=== PATIENT | male | born 1940 | race Caucasian/White ===

== ENCOUNTER → 2017-09-24 | Outpatient (CLI) | payer MEDICARE ==
--- NOTE | 2017-09-24 09:10 | US ---
EXAMINATION TYPE: US carotid duplex BILAT DATE OF EXAM: 09/24/2017 COMPARISON: US 2016 CLINICAL HISTORY: CVA I63.9, PAD. History of CVA EXAM MEASUREMENTS: RIGHT: Peak Systolic Velocity (PSV) cm/sec ----- Right CCA: 64.7 ----- Right ICA: 67.0 ----- Right ECA: 100.0 ICA/CCA ratio: 1.0 RIGHT: End Diastole cm/sec ----- Right CCA: 10.4 ----- Right ICA: 17.7 ----- Right ECA: 5.2 LEFT: Peak Systolic Velocity (PSV) cm/sec ----- Left CCA: 91.9 ----- Left ICA: 74.5 ----- Left ECA: 76.6 ICA/CCA ratio: 0.8 LEFT: End Diastole cm/sec ----- Left CCA: 12.3 ----- Left ICA: 18.8 ----- Left ECA: 4.8 VERTEBRALS (direction of flow): Right Vertebral: Antegrade Left Vertebral: Antegrade Rhythm: Normal Bilateral intimal thickening, minimal plaque bilateral bulb, no elevated velocities, no significant s tenosis. IMPRESSION: Mild degree of grayscale atheromatous plaquing with no sonographically evident hemodynam ically significant stenosis within either visualized carotid arterial system.
== END | disposition home or self-care (01) ==
LOC: RADUSMAIN 08:13
PROVIDERS: ATTEND Family Medicine
DX: I67.2 Cerebral atherosclerosis (principal); I73.9 Peripheral vascular disease, unspecified; I63.9 Cerebral infarction, unspecified
CPT/HCPCS: 93880

== ENCOUNTER → 2017-12-26 | Outpatient (CLI) | payer MEDICARE ==
--- NOTE | 2017-12-26 10:37 | ECHOF ---
Referral Reason:Aortic stenosis MEASUREMENTS -------- HEIGHT: 172.7 cm WEIGHT: 108.9 kg BP: IVSd: 1.2 cm (0.6 - 1.1) LVIDd: 4.5 cm (3.9 - 5.3) LVPWd: 1.2 cm (0.6 - 1.1) IVSs: 1.7 cm LVIDs: 3.5 cm LVPWs: 1.2 cm LA Diam: 4.4 cm (2.7 - 3.8) LAESV Index (A-L): 29.51 ml/m Ao Diam: 3.4 cm (2.0 - 3.7) AV Cusp: 1.1 cm (1.5 - 2.6) LA Diam: 3.8 cm (2.7 - 3.8) MV EXCURSION: 16.659 mm (> 18.000) MV EF SLOPE: 52 mm/s (70 - 150) EPSS: 1.1 cm MV E Kelechi: 0.68 m/s MV DecT: 263 ms MV A Kelechi: 1.00 m/s MV E/A Ratio: 0.68 AV maxP.16 mmHg AV meanP.17 mmHg RAP: 5.00 mmHg RVSP: 16.78 mmHg FINDINGS -------- Sinus rhythm. This was a technically adequate study. The left ventricular size is normal. There is mild concentric left ventricular hypertrophy. Overa ll left ventricular systolic function is low-normal with, an EF between 50 - 55 %. The right ventricle is normal in size. The left atrium is moderately dilated. LA is midly dilated 29-33ml/m2. The right atrial size is normal. There is mild aortic valve sclerosis. There is [id number] aortic regurgitation. There is mo derate aortic stenosis present. Peak/mean gradient across the Aortic Valve is 40.16mmHg / 20.17mmHg . AOV is possible Bicuspid. Mild mitral annular calcification present. Mild mitral regurgitation is present. Mild tricuspid regurgitation present. There is no evidence of pulmonary hypertension. The right v entricular systolic pressure, as measured by Doppler, is 16.78mmHg. There is no pulmonic regurgitation present. The aortic root size is normal. There is no pericardial effusion. CONCLUSIONS -------- 1. The left ventricular size is normal. 2. There is mild concentric left ventricular hypertrophy. 3. Overall left ventricular systolic function is low-normal with, an EF between 50 - 55 %. 4. The right ventricle is normal in size. 5. The left atrium is moderately dilated. 6. LA is midly dilated 29-33ml/m2. 7. The right atrial size is normal. 8. There is mild aortic valve sclerosis. 9. There is moderate aortic stenosis present. 10. Peak/mean gradient across the Aortic Valve is 40.16mmHg / 20.17mmHg. 11. AOV is possible Bicuspid. 12. Mild mitral annular calcification present. 13. Mild mitral regurgitation is present. 14. Mild tricuspid regurgitation present. 15. There is no evidence of pulmonary hypertension. 16. The right ventricular systolic pressure, as measured by Doppler, is 16.78mmHg. 17. There is no pulmonic regurgitation present. 18. The aortic root size is normal. 19. There is no pericardial effusion. DIE CAST DIE MAKER: Ryanne Kim RDCS
== END | disposition home or self-care (01) ==
LOC: RADECHMAIN 08:11
PROVIDERS: ATTEND Family Medicine
DX: I08.1 Rheumatic disorders of both mitral and tricuspid valves (principal)
CPT/HCPCS: 93306

== ENCOUNTER → 2020-08-11 | Outpatient (CLI) | payer MEDICARE ==
--- NOTE | 2020-08-11 12:09 | ECHOF ---
Referral Reason:CVA Aortic Stenosis MEASUREMENTS -------- HEIGHT: 175.3 cm WEIGHT: 111.6 kg BP: RVIDd: 3.0 cm (< 3.3) IVSd: 1.3 cm (0.6 - 1.1) LVIDd: 4.7 cm (3.9 - 5.3) LVPWd: 1.4 cm (0.6 - 1.1) IVSs: 1.9 cm LVIDs: 2.5 cm LVPWs: 1.8 cm LA Diam: 4.4 cm (2.7 - 3.8) LAESV Index (A-L): 38.91 ml/m Ao Diam: 3.1 cm (2.0 - 3.7) AV Cusp: 1.2 cm (1.5 - 2.6) LA Diam: 4.4 cm (2.7 - 3.8) MV EXCURSION: 14.751 mm (> 18.000) MV EF SLOPE: 27 mm/s (70 - 150) EPSS: 1.4 cm MV E Kelechi: 0.58 m/s MV DecT: 266 ms MV A Kelechi: 1.12 m/s MV E/A Ratio: 0.51 AV maxP.13 mmHg AV meanP.34 mmHg RAP: 5.00 mmHg RVSP: 31.50 mmHg FINDINGS -------- Sinus rhythm. This was a technically adequate study. The left ventricular size is normal. There is mild concentric left ventricular hypertrophy. Overa ll left ventricular systolic function is normal with, an EF between 55 - 60 %. The diastolic fillin g pattern is normal for the age of the patient 11.08. The right ventricle is normal in size. LA is moderately dilated 34-39 ml/m2 The right atrial size is normal. There is severe aortic valve sclerosis. There is moderate aortic stenosis present. Peak/mean grad ient across the Aortic Valve is 55.13mmHg / 33.34mmHg. Mild mitral annular calcification present. Mild mitral regurgitation is present. The tricuspid valve appears structurally normal. Mild tricuspid regurgitation present. Right vent ricular systolic pressure is normal at < 35 mmHg. The right ventricular systolic pressure, as measu red by Doppler, is 31.50mmHg. There is no pulmonic regurgitation present. The aortic root size is normal. There is no pericardial effusion. CONCLUSIONS -------- 1. There is mild concentric left ventricular hypertrophy. 2. Overall left ventricular systolic function is normal with, an EF between 55 - 60 %. 3. LA is moderately dilated 34-39 ml/m2 4. There is severe aortic valve sclerosis. 5. There is moderate aortic stenosis present. 6. Peak/mean gradient across the Aortic Valve is 55.13mmHg / 33.34mmHg. 7. Mild mitral regurgitation is present. 8. Mild tricuspid regurgitation present. ELECTRONICS MECHANIC: Ryanne Kim RDCS
== END | disposition home or self-care (01) ==
LOC: RADECHMAIN 11:18
PROVIDERS: ATTEND Family Medicine
DX: I08.1 Rheumatic disorders of both mitral and tricuspid valves (principal)
CPT/HCPCS: 93306

== ENCOUNTER → 2022-03-06 | Outpatient (CLI) | payer MEDICARE ==
--- NOTE | 2022-03-06 07:44 | CT ---
EXAMINATION TYPE: CT chest wo con DATE OF EXAM: 03/06/2022 COMPARISON: None HISTORY: sob, asbestos exposure CT DLP: 750 mGycm, Automated exposure control for dose reduction was used. CONTRAST: Performed injected with 0 mL of Isovue 300. TECHNIQUE: Axial images were obtained at 5 mm thick sections. Reconstructed images are reviewed on [employer] computer in the coronal plane. FINDINGS: Portion of the thyroid visualized is normal. A 0.4 cm nodules within the posterior superior left major fissure. Series 4 image 14 and may be a pun ctate calcification slightly more medial. Series 4 image 15. Some calcification or nodule along the l eft diaphragm is present. This measures 0.8 cm. Series 4 image 38. Moderate coronary artery calcifica tion is present. No enlarged mediastinal or hilar adenopathy is evident. The ascending aorta diameter at the level o f the main pulmonary artery is 3.6 cm. The main pulmonary artery diameter at the bifurcation is 2.[address] sections are obtained through the upper abdomen. Calcification is within the spleen. Small hiatal hernia may be present. IMPRESSIONS: 1. There is a vague calcification or nodule at the left lung base. Follow-up exam in 3-6 months is re commended. Asbestosis is not excluded. 2. Couple of very subtle punctate densities at the left apex major fissure.
== END | disposition home or self-care (01) ==
LOC: RADCTMAIN 06:47
PROVIDERS: ATTEND Family Medicine
DX: R06.02 Shortness of breath (principal); R91.8 Other nonspecific abnormal finding of lung field
CPT/HCPCS: 71250

== ENCOUNTER → 2022-03-22 | Outpatient (CLI) | payer MEDICARE ==
--- NOTE | 2022-03-22 12:05 | XR ---
EXAMINATION TYPE: XR chest 2V DATE OF EXAM: 03/22/2022 COMPARISON: 11/02/2011 HISTORY: Shortness of breath TECHNIQUE: Frontal and lateral views of the chest are obtained. FINDINGS: The heart is not enlarged and there is no pulmonary vascular congestion. The lungs are saira ar and there is no pleural effusion. No pneumothorax. Degenerative changes of the shoulders and spine , but no acute osseous abnormality. IMPRESSION: No acute cardiopulmonary process.
== END | disposition home or self-care (01) ==
LOC: RADXRMAIN 11:39
PROVIDERS: ATTEND Family Medicine
DX: R91.1 Solitary pulmonary nodule (principal)
CPT/HCPCS: 71046

== ENCOUNTER → 2023-04-23 | Outpatient (CLI) | payer MEDICARE ==
--- NOTE | 2023-04-23 11:06 | CT ---
EXAMINATION TYPE: CT chest wo con DATE OF EXAM: 04/23/2023 COMPARISON: 03/06/2022 HISTORY: 82-year-old male R91.1 SOLITARY PULMONARY NODULE TECHNIQUE: Contiguous axial scanning of the chest without IV contrast. Coronal/sagittal reconstructio ns performed. CT DLP: 775 mGycm. Automatic exposure control utilized for a dose reduction. FINDINGS: The heart is normal size without pericardial effusion. Moderate aortic valvular calcifications are pr esent. Three-vessel coronary calcifications. Mild atherosclerotic calcification within the joint vessel branching anatomy. Mildly enlarged caliber to the main pulmonary artery up to 2.6 cm may reflect pulmonary hypertension. No pathologic lymphadenopathy by CT size criteria. There is mild diffuse parenchymal thickening. Some chronic appearing interstitial scarring and mild f ibrosis in the lower lungs. Mild emphysematous change. Punctate 4 mm and smaller left upper lobe pulmonary nodules are unchanged. A larger 8 mm left basilar subpleural pulmonary nodule is also unchanged. A number of additional 3 mm and smaller pulmonary nod ules scattered throughout were present in retrospect. No consolidation or pleural effusion. Visualized upper abdomen shows a tiny splenule. Bones: [facility] throughout the mid and lower thoracic spine. Normal variant sternal foramen. IMPRESSION: 1. COPD with mild emphysema. Similar mild interstitial fibrosis in the lungs. 2. Scattered pulmonary nodules, largest measuring 8 mm at the left base. All of these remain unchange d suggesting a benign etiology. Depending on patient's risk factors, consider annual low-dose lung ca ncer screening CT if indicated. 3. CAD with 3 vessel coronary artery calcifications. Additional moderate aortic valve calcifications.
== END | disposition home or self-care (01) ==
LOC: RADCTMAIN 09:29
PROVIDERS: ATTEND Family Medicine
DX: J43.9 Emphysema, unspecified (principal); I25.10 Atherosclerotic heart disease of native coronary artery without angina pectoris; I35.8 Other nonrheumatic aortic valve disorders; J84.10 Pulmonary fibrosis, unspecified; R91.1 Solitary pulmonary nodule
CPT/HCPCS: 71250